=== PATIENT | female | born 1960 | race Caucasian/White ===

== ENCOUNTER 2022-05-26 17:11 | Emergency (ER) | payer BC, OTHER ==
[~2022-05-26] VITALS: Ht 157.5 cm; Wt 48.5 kg
[2022-05-26] MEDS ORDERED: FAMOTIDINE 20 MG TABLET PO ONE (19:15)
[2022-05-26] MEDS ORDERED: diphenhydrAMINE 50 MG CAPSULE PO ONE (19:15)
[2022-05-26] MEDS ORDERED: LIDOCAINE 1%-EPI 1:100,000 20 ML VIAL IJ ONE (19:15)
[2022-05-26] MEDS ORDERED: DEXAMETHASONE SOD PHOSPHATE 4 MG INJ IM ONE (19:15)
[2022-05-26] MEDS ORDERED: DEXAMETHASONE SOD PHOSPHATE 4 MG INJ ONE (19:37)
[2022-05-26] MEDS ORDERED: LIDOCAINE 1%-EPI 1:100,000 20 ML VIAL ONE (19:37)
[2022-05-26] MEDS ORDERED: DEXAMETHASONE SOD PHOSPHATE 10 MG INJ ONE (19:43)
[2022-05-26] MEDS ORDERED: CEphaleXIN 500 MG CAPSULE PO ONE (20:15)
[2022-05-26] MEDS ORDERED: SULFAMETH/TRIMETH 800/160 MG TABLET PO ONE (20:15)
[2022-05-26] MEDS ORDERED: SULF1TAB48 PO (20:16)
[2022-05-26] MEDS ORDERED: CEPH500C2 PO (20:16)
[2022-05-26] MEDS ORDERED: PRED20TA PO (20:28)
[2022-05-26] MEDS ORDERED: EPIN0.3A4 IM (20:30)
[2022-05-26] MEDS ORDERED: CEphaleXIN 500 MG CAPSULE ONE (20:32)
[2022-05-26] MEDS ORDERED: SULFAMETH/TRIMETH 800/160 MG TABLET ONE (20:32)
[2022-05-26] MEDS ORDERED: diphenhydrAMINE 50 MG CAPSULE ONE (20:39)
--- NOTE | 2022-05-26 20:42 | NUR ---
Patient discharged to home in stable condition. Written and verbal after care instructions given. Given antibiotic rx.Patient verbalizes understanding of instructions. Stressed follow up or return to ER for worsening s/s.
[2022-05-26 20:43] VITALS: BP 120/66
== END 2022-05-26 20:44 | disposition home or self-care (01) ==
LOC: ER 17:14
DX: L25.8 Unspecified contact dermatitis due to other agents (principal); Z88.8 Allergy status to other drugs, medicaments and biological substances; Z91.040 Latex allergy status
CPT/HCPCS: 99284; 96372; Q0163; J1100; J3490; A4663